=== PATIENT | female | born 1955 ===

== ENCOUNTER 2018-01-15 08:53 | Observation (INO) | payer MEDICAID ==
--- NOTE | 2018-01-15 09:26 | C.PDOC ---
History Of Present Illness 62-year-old female presents to the emergency department with complaints of intermittent left sided squeezing chest pain for the past two days associated with nausean. Pt states she was scheduled to have shoulder surgery today, but it was canceled because of her symptoms. She denies any shortness of breath, palpitations cough, fever, nausea, vomiting, or any other associated symptoms. Time Seen by Provider: 01/15/18 09:19 Chief Complaint (Nursing): Chest Pain History Per: Patient History/Exam Limitations: no limitations Onset/Duration Of Symptoms: Days Current Symptoms Are (Timing): Still Present Severity: Moderate Quality: Squeezing Past Medical History Reviewed: Historical Data, Nursing Documentation, Vital Signs Vital Signs: Last Vital Signs Temp 97.3 F L 01/17/18 07:00 Pulse 73 01/17/18 09:37 Resp 20 01/17/18 07:00 BP 126/75 01/17/18 09:37 Pulse Ox 98 01/17/18 08:00 - Medical History PMH: HTN Family History: States: No Known Family Hx - Social History Hx Alcohol Use: No Hx Substance Use: No Review Of Systems Constitutional: Negative for: Fever, Chills Cardiovascular: Positive for: Chest Pain. Negative for: Palpitations Respiratory: Negative for: Cough, Shortness of Breath Gastrointestinal: Positive for: Nausea. Negative for: Vomiting Musculoskeletal: Negative for: Arm Pain, Back Pain Skin: Negative for: Rash Neurological: Negative for: Weakness, Numbness, Headache, Dizziness Physical Exam - Physical Exam Appears: Well, Non-toxic, No Acute Distress Skin: Normal Color, Warm, Dry, No Rash Head: Normacephalic Eye(s): bilateral: Normal Inspection Oral Mucosa: Moist Neck: Normal, Normal ROM Cardiovascular: Rhythm Regular Respiratory: Normal Breath Sounds, No Rales, No Rhonchi, No Wheezing Gastrointestinal/Abdominal: Normal Exam, Bowel Sounds, Soft, No Tenderness Extremity: Normal ROM, No Pedal Edema, No Calf Tenderness Pulses: Left Dorsalis Pedis: Normal, Right Dorsalis Pedis: Normal Neurological/Psych: Oriented x3 ED Course And Treatment - Laboratory Results Result Diagrams: 01/15/18 09:29 01/15/18 09:29 ECG: Interpreted By Me, Viewed By Me (NSR 66 bpm, normal axis, no acute ST/T wave changes) ECG Rhythm: Sinus Rhythm ECG Interpretation: Normal Rate From EC (bpm) O2 Sat by Pulse Oximetry: 95 Pulse Ox Interpretation: Normal (RA) - Radiology CXR: Interpreted by Me, Viewed By Me CXR Interpretation: Yes: No Acute Disease. No: Infiltrates Progress Note: Bloodwork, Chest X-Ray, EKG and UA ordered and reviewed. Patient given PO Plavix (ASA allergy), SL nitro. (+) improvement of CP with nitro - PO tylenol given for nitro headache. 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 Disposition - Disposition Disposition: HOSPITALIZED Disposition Time: 11:23 Condition: STABLE - Clinical Impression Clinical Impression: Chest pain - Scribe Statement The provider has reviewed the documentation as recorded by the Scribe (Peggy Ponce) All medical record entries made by the Scribe were at my direction and personally dictated by me. I have reviewed the chart and agree that the record accurately reflects my personal performance of the history, physical exam, medical decision making, and the department course for this patient. I have also personally directed, reviewed, and agree with the discharge instructions and disposition. Decision To Admit - Pt Status Changed To: Hospital Disposition Of: Observation - . Bed Request Type: Telemetry Admitting Physician: Geovanna Enriquez Patient Diagnosis: Chest pain
[2018-01-15 09:36] LABS: BASO % 0.6 % (0.0-2.0); EOS % 0.5 % (0.0-4.0); LYMPH # 1.4 K/uL (1.0-4.3); LYMPH % 23.2 % (20.0-40.0); MEAN CELL VOLUME 93.3 fL (81.0-99.0); MEAN CORPUSCULAR HEMOGLOBIN 33.3 pg (27.0-31.0); MEAN CORPUSCULAR HGB CONC 35.7 g/dL (33.0-37.0); MEAN PLATELET VOLUME 9.8 fL (7.2-11.7); MONO # 0.4 K/uL (0.0-0.8); NEUT # 4.2 K/uL (1.8-7.0); NEUT % 68.7 % (50.0-75.0); RBC 4.52 Mil/uL (3.80-5.20); RED CELL DISTRIBUTION WIDTH 12.8 % (11.5-14.5); WHITE BLOOD COUNT 6.1 K/uL (4.8-10.8)
[2018-01-15 09:43] LABS: INR 1.1; PROTHROMBIN TIME 12.1 SECONDS (9.7-12.2)
[2018-01-15 09:55] LABS: CALCIUM 8.7 mg/dl (8.6-10.4); GFR NON-AFRICAN AMERICAN > 60
[2018-01-15 09:57] LABS: ALB/GLOB RATIO 1.3 (1.0-2.1); ALBUMIN 4.3 g/dL (3.5-5.0); ALT/SGPT 43 U/L (9-52); AST/SGOT 40 U/L (14-36); BLOOD UREA NITROGEN 14 mg/dL (7-17)
[2018-01-15 10:08] LABS: CK-MB 0.53 ng/mL (0.0-3.38)
--- NOTE | 2018-01-15 11:39 | RAD ---
Chest x-ray single frontal view History: Chest pain. Comparison: None available. Findings: Mild venous congestion. Patchy increased markings at the left lung base. Tortuous ectatic aorta. Mild cardiomegaly. Degenerative changes in the spine and shoulders. Postsurgical changes in the left proximal humerus. Impression: Mild venous congestion. Patchy increased markings at the left lung base. Tortuous ectatic aorta. Mild cardiomegaly.
[2018-01-15 16:04] VITALS: RESP 20
--- NOTE | 2018-01-15 17:18 | CP.PCM.HP ---
History of Present Illness - History of Present Illness History of Present Illness: PT CAME IN FOR CHEST PAIN FOR 2DAYS AND NAUSEA Present on Admission - Present on Admission Any Indicators Present on Admission: No Review of Systems - Review of Systems Systems not reviewed;Unavailable: Acuity of Condition - Constitutional Constitutional: As Per HPI - EENT Eyes: As Per HPI Ears: As Per HPI Nose/Mouth/Throat: As Per HPI - Breasts Breasts: As Per HPI - Cardiovascular Cardiovascular: As Per HPI - Respiratory Respiratory: As Per HPI - Gastrointestinal Gastrointestinal: As Per HPI - Genitourinary Genitourinary: As Per HPI - Reproductive: Female Reproductive:Female: As Per HPI - Menstruation Menstruation: Post Menopausal - Musculoskeletal Musculoskeletal: As Per HPI - Integumentary Integumentary: As Per HPI - Neurological Neurological: As Per HPI - Psychiatric Psychiatric: As Per HPI - Endocrine Endocrine: As Per HPI - Hematologic/Lymphatic Hematologic: As Per HPI Past Patient History - Infectious Disease Hx of Infectious Diseases: None - Past Social History Smoking Status: Never Smoked - CARDIAC Hx Hypertension: Yes - PULMONARY Hx Respiratory Disorders: No - NEUROLOGICAL Hx Neurological Disorder: No - HEENT Hx HEENT Problems: No - RENAL Hx Chronic Kidney Disease: No - ENDOCRINE/METABOLIC Hx Endocrine Disorders: No - HEMATOLOGICAL/ONCOLOGICAL Hx Blood Disorders: No - INTEGUMENTARY Hx Dermatological Problems: No - MUSCULOSKELETAL/RHEUMATOLOGICAL Other/Comment: right shoulder pain - GASTROINTESTINAL Hx Gastrointestinal Disorders: No - GENITOURINARY/GYNECOLOGICAL Hx Genitourinary Disorders: No - PSYCHIATRIC Hx Substance Use: No Meds Allergies/Adverse Reactions: Allergies Allergy/AdvReac Type Severity Reaction Status Date / Time aspirin Allergy Verified 01/15/18 09:01 Penicillins Allergy Verified 01/15/18 09:01 Physical Exam - Constitutional Appears: No Acute Distress - Head Exam Head Exam: ATRAUMATIC - Eye Exam Eye Exam: Normal appearance Pupil Exam: NORMAL ACCOMODATION - ENT Exam ENT Exam: Mucous Membranes Moist - Neck Exam Neck exam: Positive for: Full Rom - Respiratory Exam Respiratory Exam: Clear to Auscultation Bilateral - Cardiovascular Exam Cardiovascular Exam: REGULAR RHYTHM - GI/Abdominal Exam GI & Abdominal Exam: Normal Bowel Sounds - Rectal Exam Rectal Exam: NORMAL INSPECTION - Extremities Exam Extremities exam: Positive for: normal inspection - Back Exam Back exam: NORMAL INSPECTION - Neurological Exam Neurological exam: Alert, Normal Gait, Oriented x3 - Psychiatric Exam Psychiatric exam: Normal Mood - Skin Skin Exam: Dry Results - Vital Signs Recent Vital Signs: Last Vital Signs Temp 98.1 F 01/15/18 15:00 Pulse 72 01/15/18 15:00 Resp 20 01/15/18 15:00 BP 164/76 H 01/15/18 15:00 Pulse Ox 97 01/15/18 16:29 - Labs Result Diagrams: 01/15/18 09:29 01/15/18 09:29 Labs: Laboratory Results - last 24 hr 01/15/18 01/15/18 01/15/18 09:29 09:29 09:29 WBC 6.1 RBC 4.52 Hgb 15.0 Hct 42.1 MCV 93.3 MCH 33.3 H MCHC 35.7 RDW 12.8 Plt Count 194 MPV 9.8 Neut % (Auto) 68.7 Lymph % (Auto) 23.2 Russell % (Auto) 7.0 Eos % (Auto) 0.5 Baso % (Auto) 0.6 Neut # (Auto) 4.2 Lymph # (Auto) 1.4 Russell # (Auto) 0.4 Eos # (Auto) 0.0 Baso # (Auto) 0.0 PT 12.1 INR 1.1 APTT 33 Sodium 140 Potassium 4.2 Chloride 104 Carbon Dioxide 27 Anion Gap 14 BUN 14 Creatinine 0.5 L Est GFR ( Amer) > 60 Est GFR (Non-Af Amer) > 60 Random Glucose 110 H Calcium 8.7 Total Bilirubin 1.0 AST 40 H ALT 43 Alkaline Phosphatase 85 Total Creatine Kinase 94 CK-MB (Mass) 0.53 Troponin I 0.0130 Total Protein 7.6 Albumin 4.3 Globulin 3.3 Albumin/Globulin Ratio 1.3 Assessment & Plan - Assessment and Plan (Free Text) Assessment: THEO CHEST PAIN Plan: TELE RORDER EKG X3 AND CARDIAC ENZYMS ECHO - Date & Time Date: 01/15/18 Time: 17:21
--- NOTE | 2018-01-15 19:18 | CARD ---
APPROVED REPORT Date of service: 01/15/2018 EKG Measurement Heart [id number] NM [id number] [id number] <Conclusion> Normal sinus rhythm Moderate voltage criteria for LVH, may be normal variant Borderline ECG
[2018-01-15 20:34] LABS: CK-MB 0.28 ng/mL (0.0-3.38)
[2018-01-16 02:24] LABS: CK-MB < 0.22 ng/mL (0.0-3.38)
[2018-01-16 09:20] LABS: CK-MB 0.26 ng/mL (0.0-3.38)
[2018-01-16] MEDS: Enoxaparin 40 mg Syringe SC SCH (09:29)
--- NOTE | 2018-01-16 09:58 | CP.PCM.PN ---
Subjective - Date & Time of Evaluation Date of Evaluation: 01/16/18 Time of Evaluation: 09:56 - Subjective Subjective: pt still has chest pain no vomiting today hx of ht attack before Objective - Vital Signs/Intake and Output Vital Signs (last 24 hours): Temp Pulse Resp BP Pulse Ox 97.6 F 71 20 127/70 98 01/16/18 07:00 01/16/18 09:28 01/16/18 07:00 01/16/18 09:28 01/16/18 08:00 Intake and Output: 01/16/18 01/16/18 06:59 18:59 Intake Total 500 Balance 500 - Medications Medications: Current Medications Amlodipine Besylate (Norvasc) 5 mg PO DAILY [facility] Last Admin: 01/16/18 09:29 Dose: 5 mg Enoxaparin Sodium (Lovenox) 40 mg SC DAILY [facility] Last Admin: 01/16/18 09:29 Dose: 40 mg - Labs Labs: 01/15/18 09:29 01/15/18 09:29 PT 12.1 SECONDS (9.7-12.2) 01/15/18 09:29 INR 1.1 01/15/18 09:29 APTT 33 SECONDS (21-34) 01/15/18 09:29 - Constitutional Appears: Non-toxic - Head Exam Head Exam: NORMAL INSPECTION - Eye Exam Eye Exam: Normal appearance Pupil Exam: NORMAL ACCOMODATION - ENT Exam ENT Exam: Mucous Membranes Moist - Respiratory Exam Respiratory Exam: NORMAL BREATHING PATTERN - Cardiovascular Exam Cardiovascular Exam: REGULAR RHYTHM - GI/Abdominal Exam GI & Abdominal Exam: Normal Bowel Sounds - Extremities Exam Extremities Exam: Normal Inspection - Back Exam Back Exam: NORMAL INSPECTION - Neurological Exam Neurological Exam: Alert, Oriented x3 - Psychiatric Exam Psychiatric exam: Normal Mood - Skin Skin Exam: Normal Color Assessment and Plan - Assessment and Plan (Free Text) Assessment: cad chest pain htn htdisease lung infiltrate Plan: repeate ekg start
--- NOTE | 2018-01-16 11:03 | CARD ---
APPROVED REPORT Date of service: 01/15/2018 EKG Measurement Heart [id number] TN 180P33 [id number] <Conclusion> Normal sinus rhythm Minimal voltage criteria for LVH, may be normal variant Borderline ECG
[2018-01-16 12:07] LABS: CK-MB 0.26 ng/mL (0.0-3.38)
[2018-01-16 17:47] LABS: CK-MB 0.34 ng/mL (0.0-3.38)
--- NOTE | 2018-01-16 20:09 | CARD ---
APPROVED REPORT Date of service: 01/16/2018 EXAM: Two-dimensional and M-mode echocardiogram with Doppler and color Doppler. Other Information Quality : GoodRhythm : INDICATION Chest Pain RISK FACTORS Hypertension 2D DIMENSIONS IVSd1.3 (0.7-1.1cm)LVDd3.4 (3.9-5.9cm) PWd1.2 (0.7-1.1cm)LVDs2.3 (2.5-4.0cm) FS (%) 32.3 %LVEF (%)61.8 (>50%) M-Mode DIMENSIONS Left Atrium (MM)2.92 (2.5-4.0cm)IVSd1.24 (0.7-1.1cm) Aortic Root3.98 (2.2-3.7cm)LVDd3.79 (4.0-5.6cm) Aortic Cusp Exc.1.95 (1.5-2.0cm)PWd1.15 (0.7-1.1cm) FS (%) 43 %LVDs2.15 (2.0-3.8cm) LVEF (%)75 (>50%) Aortic Valve AI P 1/2 [id number] Mitral Valve MV E Cgvvzsky03.2cm/sMV A Oxmoprim65.2cm/sE/A ratio0.9 TDI E/Lateral E'0.0E/Medial E'0.0 Tricuspid Valve TR Peak [id number]/sTR Peak [id number] LEFT VENTRICLE The left ventricle is normal size. There is normal left ventricular wall thickness. The left ventricular function is normal. The left ventricular ejection fraction is within the normal range. No regional wall motion abnormalities noted. Transmitral Doppler flow pattern is Grade I-abnormal relaxation pattern. LV filling pressure is normal No left ventricle thrombus noted on this study. There is no ventricular septal defect visualized. There is no left ventricular aneurysm. There is no mass noted in the left ventricle. RIGHT VENTRICLE The right ventricle is normal size. There is normal right ventricular wall thickness. The right ventricular systolic function is normal. ATRIA The left atrium size is normal. The right atrium size is normal. The interatrial septum is intact with no evidence for an atrial septal defect. AORTIC VALVE The aortic valve is normal in structure and function. There is mild aortic regurgitation. There is no aortic valvular stenosis. There is no aortic valvular vegetation. MITRAL VALVE The mitral valve is normal in structure and function. There is no evidence of mitral valve prolapse. There is no mitral valve stenosis. There is no mitral valve regurgitation noted. TRICUSPID VALVE The tricuspid valve is normal in structure and function. There is mild tricuspid regurgitation. Right ventricular systolic pressure is estimated at less than 30 mmHg. There is no tricuspid valve prolapse or vegetation. There is no tricuspid valve stenosis. PULMONIC VALVE The pulmonary valve is normal in structure and function. There is no pulmonic valvular regurgitation. There is no pulmonic valvular stenosis. GREAT VESSELS The aortic root is normal in size. The ascending aorta is normal in size. The pulmonary artery is normal. The IVC is normal in size and collapses >50% with inspiration. PERICARDIAL EFFUSION The pericardium appears normal. There is no pleural effusion. <Conclusion> The left ventricular function is normal. The left ventricular ejection fraction is within the normal range. No regional wall motion abnormalities noted. Transmitral Doppler flow pattern is Grade I-abnormal relaxation pattern. LV filling pressure is normal There is mild aortic regurgitation.
[2018-01-17 08:41] VITALS: TEMP 97.3
[2018-01-17 09:37] VITALS: BP 126/75; PULSE 73
[2018-01-17] MEDS: Enoxaparin 40 mg Syringe SC SCH (09:51)
--- NOTE | 2018-01-17 10:22 | CP.PCM.PN ---
Subjective - Date & Time of Evaluation Date of Evaluation: 01/17/18 Time of Evaluation: 10:20 - Subjective Subjective: feels beter Objective - Vital Signs/Intake and Output Vital Signs (last 24 hours): Temp Pulse Resp BP Pulse Ox 97.3 F L 73 20 126/75 98 01/17/18 07:00 01/17/18 09:37 01/17/18 07:00 01/17/18 09:37 01/17/18 08:00 Intake and Output: 01/17/18 01/17/18 06:59 18:59 Intake Total 450 Balance 450 - Medications Medications: Current Medications Amlodipine Besylate (Norvasc) 5 mg PO DAILY [facility] Last Admin: 01/17/18 09:52 Dose: 5 mg Enoxaparin Sodium (Lovenox) 40 mg SC DAILY [facility] Last Admin: 01/17/18 09:51 Dose: 40 mg - Labs Labs: 01/15/18 09:29 01/15/18 09:29 PT 12.1 SECONDS (9.7-12.2) 01/15/18 09:29 INR 1.1 01/15/18 09:29 APTT 33 SECONDS (21-34) 01/15/18 09:29 - Constitutional Appears: Non-toxic - Head Exam Head Exam: NORMAL INSPECTION - Eye Exam Eye Exam: Normal appearance Pupil Exam: NORMAL ACCOMODATION - ENT Exam ENT Exam: Mucous Membranes Moist - Neck Exam Neck Exam: Normal Inspection - Respiratory Exam Respiratory Exam: Clear to Ausculation Bilateral - Cardiovascular Exam Cardiovascular Exam: REGULAR RHYTHM - GI/Abdominal Exam GI & Abdominal Exam: Soft - Exam Exam: NORMAL INSPECTION - Extremities Exam Extremities Exam: Normal Inspection - Neurological Exam Neurological Exam: Alert, Oriented x3 - Psychiatric Exam Psychiatric exam: Normal Affect - Skin Skin Exam: Normal Color Assessment and Plan - Assessment and Plan (Free Text) Assessment: chest pain costochondritis resolved htn controled Plan: will discharge home today f/u by her
[2018-01-19 12:31] VITALS: O2SAT 95
== END 2018-01-17 16:32 | disposition home or self-care (01) ==
LOC: C.ER 08:53 → C.9E 11:23 → C.5S 14:35
PROVIDERS: ADMIT Internal Medicine; ATTEND Internal Medicine
DX: M94.0 Chondrocostal junction syndrome [Tietze] (principal); I10 Essential (primary) hypertension; I25.10 Atherosclerotic heart disease of native coronary artery without angina pectoris
CPT/HCPCS: 36415; 71045; 80053; 82550; 82553; 82948; 84484; 85025; 85610; 85730; 93005; 93306; 99285; G0378; J1650; J1940